=== PATIENT | female | born 1975 | race Caucasian/White ===

== ENCOUNTER 2019-04-24 11:48 | Outpatient (CLI) | payer BC, SELFPAY ==
--- NOTE | 2019-04-24 10:58 | DI.RAD_ITS ---
SYMPTOM/DIAGNOSIS; PAIN RIGHT WRIST: 04/24 Three views were obtained. Carpal alignment appears within normal limits. No bony abnormality is seen.
== END 2019-04-24 12:08 ==
PROVIDERS: PCP Physician Assistant Medical; Visit Provider Orthopaedic Surgery
DX: M25.531 Pain in right wrist (principal)
CPT/HCPCS: 73110